=== PATIENT | female | born 1965 | race Caucasian/White ===

== ENCOUNTER 2019-12-05 00:07 | Emergency (ER) | payer BC ==
[2019-12-05 01:12] VITALS: BP 107/61
--- NOTE | 2019-12-05 06:25 | EKG REPORT ---
SEVERITY:- BORDERLINE ECG - SINUS BRADYCARDIA BORDERLINE T ABNORMALITIES, ANTERIOR LEADS : Confirmed by: Tommy Currie MD 05-Dec-2019 06:25:07
== END 2019-12-05 02:00 | disposition left against medical advice (07) ==
LOC: ER 00:07
DX: Z53.21 Procedure and treatment not carried out due to patient leaving prior to being seen by health care provider (principal)
CPT/HCPCS: 93005; 93010